=== PATIENT | female | born 1950 | race Caucasian/White ===

== ENCOUNTER 2020-07-03 21:27 | Emergency (ER) | payer OTHER, MEDICARE ==
[2020-07-03] MEDS ORDERED: DIPHTH,PERTUSS(ACELL),TET 0.5 ML DISP.SYRIN IM ONE ×2 (21:34)
--- NOTE | 2020-07-03 21:34 | PDOC ---
History of Present Illness - General Chief Complaint: Injury Stated Complaint: CUT LEFT INDEX FINGER Time Seen by Provider: 07/03/20 21:34 History Source: Patient Exam Limitations: No Limitations - History of Present Illness Initial Comments: 07/03/20 22:06 70-year-old female who comes in complaining of a laceration to her left index finger. Patient was cutting chicken when she cut a chunk of skin out of her finger earlier today. Patient was on a ball to get it to stop bleeding so came in for evaluation. Allergies: as per nursing notes Past Medical History: none Social history: Lives with family. No smoking. No alcohol. No illicit drugs. Surgical history: None General: No fevers or chills, no weakness, no weight loss HEENT: No change in vision. No sore throat,. No ear pain CardioVascular: no chest discomfort. No shortness of breath Respiratory:No cough, or wheezing. Gastrointestinal: no nausea, vomiting, diarrhea or constipation, No rectal bleeding Genitourinary: No dysuria, hematuria, or frequency Musculoskeletal: No joint or muscle pain or swelling Neurologic: No headache, vertigo, dizziness or loss of consciousness Psychiatric: nor depression Skin: No rashes or easy bruising, skin avulsion Endocrine: no increased thirst or abnormal weight change All other systems reviewed and normal GENERAL: The patient is awake, alert, and fully oriented, in no acute distress. HEENT:Head is normal with no signs of trauma. Eyes: Pupils equal, round and reactive to light, Ears, and Throat are normal. Neck is supple. No Lymphadenopathy. EXTREMITIES:atraumatic, Normal range of motion, no edema. Left index finger No skin avulsion of the medial portion of the distal phalanx of the left index finger approximately 1/2 cm in length NEUROLOGICAL: Normal speech, normal gait. PSYCH: Normal mood, normal affect. SKIN: Warm, Dry, normal turgor, no rashes or lesions noted. Plan: This is a 70-year-old female with a small skin avulsion of the left index finger. Area was cleaned and closed with Dermabond patient tolerated well. Past History - Medical History Allergies/Adverse Reactions: Allergies Allergy/AdvReac Type Severity Reaction Status Date / Time codeine AdvReac Nausea Verified 07/03/20 21:56 Home Medications: Ambulatory Orders Atorvastatin Ca [Lipitor] 20 mg PO HS 07/03/20 Discharge - Discharge Information Problems reviewed: Yes Clinical Impression/Diagnosis: Avulsion of skin of index finger Qualifiers: Encounter type: initial encounter Qualified Code(s): S61.208A - Unspecified open wound of other finger without damage to nail, initial encounter Condition: Stable Disposition: HOME - Admission No - Follow up/Referral Referrals: Elena Fournier MD [Primary Care Provider] - - Patient Discharge Instructions Patient Printed Discharge Instructions: DI for Laceration Repair-Skin Glue Additional Instructions: Read over and follow the skin glue laceration instructions. The important point is do not put any petroleum based products on the glue as it will cause it to come off early. Return to the emergency department immediately with ANY new, persistent or worsening symptoms. Continue any medications as previously prescribed by your physician. You should follow up with your primary doctor as soon as possible regarding today's emergency department visit. . Please make sure your doctor reviews the results of your emergency evaluation. Thank you for coming to the Emergency Department today for your care. It was a pleasure to see you today. Please note that your evaluation is INCOMPLETE until you follow-up with your doctor. - Post Discharge Activity
--- OUTSIDE RECORDS SUMMARY | 2020-07-03 21:38 | XMS ---
:1950 Author [facility] Support Name Relationship Address Phone [facility] Unavailable [address] [address] KEITH HUITRON [address] [place] [address] Re-disclosure Warning The records that you are about to access may contain information from federally- assisted alcohol or drug abuse programs. If such information is present, then the following federally mandated warning applies: This information has been disclosed to you from records protected by federal confidentiality rules (42 CFR part 2). The federal rules prohibit you from making any further disclosure of this information unless further disclosure is expressly permitted by the written consent of the person to whom it pertains or as otherwise permitted by 42 CFR part 2. A general authorization for the release of medical or other information is NOT sufficient for this purpose. The Federal rules restrict any use of the information to criminally investigate or prosecute any alcohol or drug abuse patient.The records that you are about to access may contain highly sensitive health information, the redisclosure of which is protected by Article 27-F of the [facility] Public Health law. If you continue you may haveaccess to information: Regarding HIV / AIDS; Provided by facilities licensed or operated by the [facility] Office of Mental Health; or Provided by the [facility] Office for People With Developmental Disabilities. If such information is present, then the following [facility] mandated warning applies: This information has been disclosed to you from confidential records which are protected by state law. State law prohibits you from making any further disclosure of this information without the specific written consent of the person to whom it pertains, or as otherwise permitted by law. Any unauthorized further disclosure in violation of state law may result in a fine or chcf sentence or both. A general authorization for the release of medical or other information is NOT sufficient authorization for further disclosure. Insurance Providers Payer name Policy type Policy ID Covered Covered green party's Policy P lay / Coverage green party ID relationship to [employer] Inf ormation type felder [employer] [id number] [facility]
[2020-07-03 21:48] VITALS: PULSE 82; TEMP 98.7; BMI 24.3
[2020-07-03 22:19] VITALS: BP 175/102
[2020-07-10] MEDS ORDERED: FUROSEMIDE 40 MG/4 ML INJECTABLE VIAL ONE (11:07)
== END 2020-07-03 22:07 | disposition home or self-care (01) ==
LOC: FER 21:27
PROC: 3E0234Z Introduction of Serum, Toxoid and Vaccine into Muscle, Percutaneous Approach (ICD-10-PCS; principal; 2020-07-03)
DX: S61.208A Unspecified open wound of other finger without damage to nail, initial encounter (principal)
CPT/HCPCS: 90715; 99284-25